=== PATIENT | female | born 1985 | race Asian ===

== ENCOUNTER 2019-09-10 05:35 | Emergency (ER) | payer SELFPAY ==
[~2019-09-10] VITALS: Ht 160 cm; Wt 77.3 kg
[2019-09-10] MEDS ORDERED: ESCI5SOL2 PO (05:57)
[2019-09-10 06:15] VITALS: BP 147/87
[2019-09-10] MEDS ORDERED: SUMAtriptan SUCCINATE 6 MG/0.5 ML VIAL SQ ONE (06:15)
[2019-09-10] MEDS ORDERED: ACETAMINOPHEN 325 MG TABLET ONE (06:47)
[2019-09-10] MEDS ORDERED: ACETAMINOPHEN 500 MG TABLET PO ONE (07:00)
== END 2019-09-10 07:58 | disposition home or self-care (01) ==
LOC: EMS 05:38
DX: G43.909 Migraine, unspecified, not intractable, without status migrainosus (principal)
CPT/HCPCS: 96372; 99283; J3030